=== PATIENT | male | born 1985 | race Caucasian/White ===

== ENCOUNTER 2021-10-21 15:19 | Emergency (ER) | payer OTHER ==
[~2021-10-21] VITALS: Ht 175.3 cm; Wt 122.5 kg
[2021-10-21 15:20] VITALS: BP_SYST 182
--- NOTE | 2021-10-21 15:20 | NUR ---
Patient to ER bed H1 to gown for evaluation. Side rails up.
--- NOTE | 2021-10-21 15:40 | NUR ---
Pt presents to the ER bib self CC right knee pain 11/15. BP 182/127, pt denies NVD, denies head ache. Pt is diaphretic denies past medical history. No trauma indicated onset of pain 48 hours. Slight swelling to right knee cap.
--- NOTE | 2021-10-21 15:50 | NUR ---
ER at bedside examining patient.
[2021-10-21] MEDS ORDERED: cloNIDine HCL 0.1 MG TABLET PO ONE (16:00)
[2021-10-21] MEDS ORDERED: cloNIDine HCL 0.1 MG TABLET ONE (16:05)
--- NOTE | 2021-10-21 16:08 | NUR ---
Radiology dept bedside . pt tolerated well.
--- NOTE | 2021-10-21 16:09 | NUR ---
pt with financial service rep bed side.
[2021-10-21] MEDS ORDERED: LISI20TA30 PO ×2 (17:50→17:56)
[2021-10-21] MEDS ORDERED: ALLO100T PO (17:56)
[2021-10-21] MEDS ORDERED: COLC0.6T67 PO (17:56)
[2021-10-21] MEDS ORDERED: NAPR-690 PO (17:56)
--- NOTE | 2021-10-21 18:05 | NUR ---
Patient given written and verbal discharge instructions and verbalizes understanding. ER MD discussed with patient the results and treatment provided. Patient in stable condition. ID arm band removed. IV catheter removed intact and dressing applied, no active bleeding. Rx of Colchince, Naproxen, and Lisinopril given. Patient educated on pain management and to follow up with PMD. Opportunity for questions provided and answered. Medication side effect fact sheet provided.
[2021-10-21 18:07] VITALS: BP_SYST 146
== END 2021-10-21 18:05 | disposition home or self-care (01) ==
LOC: SED 15:19
DX: M25.561 Pain in right knee (principal); M10.9 Gout, unspecified; I10 Essential (primary) hypertension; Z79.899 Other long term (current) drug therapy
CPT/HCPCS: 36415; 73560-TC; 84550; 99284